=== PATIENT | male | born 1955 | race Caucasian/White ===

== ENCOUNTER 2020-05-12 05:23 | Day surgery (SDC) | payer MEDICARE, OTHER ==
[2020-05-07 09:34] LABS: HEMATOCRIT 38.3 % (37.9-51.0); HEMOGLOBIN 13.4 g/dL (13.5-17.0); MEAN CORPUSCULAR HEMOGLOBIN 30.3 pg (27.0-33.4); MEAN CORPUSCULAR HGB CONC 35.1 g/dL (32.0-36.0); MEAN CORPUSCULAR VOLUME 86 fl (80-97); PLATELET COUNT 211 10^3/uL (150-450); RED BLOOD COUNT 4.43 10^6/uL (4.35-5.55); RED CELL DISTRIBUTION WIDTH 13.4 % (11.5-14.0); WHITE BLOOD COUNT 5.7 10^3/uL (4.0-10.5)
--- NOTE | 2020-05-07 12:43 | EKG REPORT ---
SEVERITY:- NORMAL ECG - SINUS RHYTHM : Confirmed by: Alex Chu MD 07-May-2020 12:42:33
[~2020-05-12 05:23] MED LIST: DEXTROSE 5%-LACTATED RINGERS 1,000 ML IV PRN
[2020-05-12] MEDS ORDERED: FENTANYL CITRATE INJ/PF 100 MCG/2 ML AMPUL ONE ×2 (06:41→07:16)
[2020-05-12] MEDS ORDERED: EPHEDRINE SULFATE INJ 50 MG/1 ML AMPULE ONE (06:41)
[2020-05-12] MEDS ORDERED: MIDAZOLAM 2 MG/2 ML INJ ONE (06:41)
[2020-05-12] MEDS ORDERED: PROPOFOL INJ 200 MG/20 ML VIAL IV ONE (06:42)
[2020-05-12] MEDS ORDERED: ONDANSETRON HCL INJ/PF 4 MG/2 ML SDV ONE (06:42)
[2020-05-12] MEDS ORDERED: LIDOCAINE 1%/EPINEPHRINE INJ 20 ML VIAL ONE ×2 (07:02→08:11)
[2020-05-12 07:08] LABS: POTASSIUM 4.6 mmol/L (3.6-5.0)
[2020-05-12] MEDS ORDERED: SUGAMMADEX SODIUM 200 MG/2 ML SDV IV ONE (07:16)
[2020-05-12] MEDS ORDERED: MEPERIDINE HCL/PF INJ 25 MG/1 ML DISP.SYRIN IV PRN (08:02)
[2020-05-12] MEDS ORDERED: DIPHENHYDRAMINE HCL 50 MG/ML VIAL IV PRN (08:02)
[2020-05-12] MEDS ORDERED: PROMETHAZINE HCL INJ 25 MG/1 ML VIAL IV PRN ×2 (08:02)
[2020-05-12] MEDS ORDERED: FENTANYL CITRATE INJ/PF 100 MCG/2 ML AMPUL IV PRN ×3 (08:02)
[2020-05-12] MEDS ORDERED: OXYCODONE-ACETAMINOPHEN 5-325 MG TABLET PO PRN ×3 (08:02→08:49)
[2020-05-12] MEDS ORDERED: MORPHINE SULFATE 10 MG/ML INJ IV PRN (08:02)
--- NOTE | 2020-05-12 08:37 | Operative Report ---
Operative Report DATE OF SURGERY: 05/12/20 PREOPERATIVE DIAGNOSIS: 1. Multiple inflamed sebaceous cysts of the back. 2. COPD POSTOPERATIVE DIAGNOSIS: Same OPERATION: Complete excision of 3 sebaceous cysts of the back including large upper mid back, large left lower back, and small right lower back with drain placement x2 SURGEON: SILKE VALDOVINOS 1ST ORBITREAD OPERATOR: VIJAY WISE ANESTHESIA: GA TISSUE REMOVED OR ALTERED: Sebaceous cyst contents disposed of COMPLICATIONS: None ESTIMATED BLOOD LOSS: Minimal INTRAOPERATIVE FINDINGS: See below PROCEDURE: The patient was taken from the preop holding area where all 3 sebaceous cyst of the back were marked by Dr. Valdovinos. He was then brought to the operating room where general anesthesia was induced, the patient was placed in the prone position, arms abducted. The back was exposed, prepped and draped in sterile fashion with Betadine Surgical plan surgical timeout were conducted. The target sebaceous cyst were in the mid upper back, left lower back, right lower back. All 3 sites were marked for a planned excisional debridement. Skin was anesthetized with 1% plain lidocaine. The left lower back was approached first. This lesion was excised in an elliptical fashion oriented horizontally. The ellipse of skin was approximately 1-1/2 x 3-1/2 cm. The entire sebaceous cyst, with surrounding fibrotic inflammatory tissue was excised to the back fascia with a #10 blade. There were several centimeters of undermined cavity. A counterincision was made inferior to the evacuated cavity, and a Nando drain fragment positioned into place exiting the counterincision. We irrigated the cavity out, ensure that all buttock elements were excised, and the wound closed with vertically oriented mattress sutures using a 3-0 suture. The drain was secured with a similar suture The identical procedure was performed on the upper back cyst, with the excisional ellipse excised with the dimensions 3.5 x 2.0 cm. All underlying sebum, fibrotic tissue and inflammatory tissue excised in its entirety. Wound check for bleeding and there was minimal spots handled with electrocautery. The wound was closed with multiple vertical oriented 3-0 Ethilon sutures in a mattress fashion, with a Nando drain fragment exiting the inferior aspect of the incision secured with a similar suture. All dissection performed with a #10 blade and pickups. The depth of the dissection was down to the upper back fascia. Finally the right lower quadrant smaller 1 x 2cm sebaceous cyst was excised in elliptical fashion with the excision oriented horizontally. The sebaceous cyst with surrounding inflammatory tissue and fibrotic tissue was excised in its entirety and disposed of. Wound closed with multiple interrupted 3 and 4-0 sutures in a vertical mattress fashion. No drain applied. All wounds covered with 4 x 4's, and tape. Patient tolerated procedure well, rolled back into the supine position, and successfully extubated. He was taken to recovery room in stable condition. The physician life enrichment assistant, Ms. De La Fuente, provided assistance during this case by: Assisting with incisions, retracting tissue, instillation of local anesthesia and closure of skin incisions.
[2020-05-12] MEDS ORDERED: DEXAMETHASONE SOD PHOSPHATE INJ 4 MG/1 ML VIAL ONE (08:38)
--- NOTE | 2020-05-12 08:49 | Discharge Summary ---
Discharge Summary (SDC) - Discharge Final Diagnosis: sebaceous cyst of back x 3 Date of Surgery: 05/12/20 Discharge Date: 05/12/20 Condition: Good Forms: ASU Anesthesia D/C Instruction, Discharge POC-Surgical Service Treatment or Instructions: WOUND CARE: Do not shower until 48 hours after surgery. You may remove tape and gauze 24 hours after surgery and apply a clean dressing to the incision sites and two drain sites. After 48 hours, you may shower. Remove outer dressings and allow warm water and soap to wash over wound. Do not scrub. Pat dry. Apply a clean dressing. Do not bathe or go swimming for two weeks. PAIN MANAGEMENT: You may take Toradol 10mg one pill by mouth every six hours as needed for pain. Do not take additional NSAIDs (Ibuprofen, Advil, Aleve, Goodies Powder) with Toradol. You may take Tylenol with medication. You may resume all home meds. FOLLOW UP You may follow up at [facility] in 7-10 days. Call clinic sooner with questions/concerns. Prescriptions: Ketorolac Tromethamine [Toradol 10 mg Tablet] 10 mg PO Q6HP PRN #20 tablet PRN Reason: Referrals: SILKE LAWRENCE MD [ACTIVE STAFF] - Discharge Diet: As Tolerated Discharge Activity: Balance Activity w/Rest, Walk Frequently Report the Following to Your Physician Immediately: Increase in Pain, Fever over 101 Degrees, Unusual Bleeding, Redness, Swelling, Warmth, Increased Soreness, Drainage-Foul Smelling
[2020-05-12 11:02] VITALS: BP 133/74
== END 2020-05-12 10:10 | disposition home or self-care (01) ==
LOC: OROUT 05:23
PROVIDERS: ATTEND Surgery
DX: L72.3 Sebaceous cyst (principal); I10 Essential (primary) hypertension; J44.9 Chronic obstructive pulmonary disease, unspecified; E11.9 Type 2 diabetes mellitus without complications; E78.00 Pure hypercholesterolemia, unspecified; K21.9 Gastro-esophageal reflux disease without esophagitis; E66.9 Obesity, unspecified; G47.33 Obstructive sleep apnea (adult) (pediatric); Z79.899 Other long term (current) drug therapy; Z03.818 Encounter for observation for suspected exposure to other biological agents ruled out; Z95.1 Presence of aortocoronary bypass graft; Z80.8 Family history of malignant neoplasm of other organs or systems; Z98.84 Bariatric surgery status
CPT/HCPCS: 11043; 93005; 36415 ×2; 82947; 84132; 85027; 93010; U0003; J2250; J1100; J3490 ×3; J3010; J2405; J2704; C9803; 87635

== ENCOUNTER → 2020-05-18 | Outpatient (CLI) | payer MEDICARE ==
--- NOTE | 2020-05-18 14:04 | RADIOLOGY REPORT (SQ) ---
EXAM DESCRIPTION: MRI LUMBAR SPINE WITHOUT IMAGES COMPLETED DATE/TIME: 05/18/2020 8:34 am REASON FOR STUDY: M54.9 DORSALGIA, UNSPECIFIED M54.9 DORSALGIA, UNSPECIFIED COMPARISON: None. TECHNIQUE: Sagittal and Axial imaging includes T1, T2, STIR and gradient echo sequences. Coronal T2/ HASTE imaging. LIMITATIONS: None. FINDINGS: VISUALIZED UPPER ABDOMEN: Limited evaluation. No acute or suspicious findings suggested. SEGMENTATION: No transitional anatomy. The lowest well-developed disc space is labeled L5-S1. ALIGNMENT: Anatomic. VERTEBRAE: Intact. BONE MARROW: Normal. No marrow replacement or reactive changes. DISC SIGNAL: Normal. No significant abnormal signal or loss of height. POSTERIOR ELEMENTS: Generally intact. No pars defect evident. HARDWARE: None in the spine. CORD AND CONUS: Normal in size and signal intensity. Conus at the T12-L1 level. SOFT TISSUES: No aortic aneurysm seen. No bulky retroperitoneal adenopathy or mass. No paraspinal mas s or fluid. L1-L2: No significant spinal stenosis or exit foraminal stenosis. L2-L3: No significant spinal stenosis or exit foraminal stenosis. L3-L4: No significant spinal stenosis or exit foraminal stenosis. L4-L5: Mild concentric disc bulging with no central canal or foraminal stenosis. L5-S1: Shallow broad-based disc/osteophyte complex with midline to a slightly right paracentral disc protrusion. This may displace the traversing nerve root on the right laterally. LOWER THORACIC: Incompletely imaged. No stenosis seen. SACRUM: Visualized upper sacrum intact. OTHER: No other significant findings. IMPRESSION: Mild concentric disc bulging at L4-5 with no significant stenoses. Broad-based disc/ os teophyte complex at L5-S1. There is a disc protrusion in the midline and slightly to the right that appears to displace the traversing nerve root laterally to a mild degree. TECHNICAL DOCUMENTATION: JOB ID: [id number] 2010 [employer]- All Rights Reserved Reading location - IP/workstation name: [email or web address]
== END ==
LOC: RAD 07:56
PROVIDERS: ATTEND Family Medicine Geriatric Medicine
DX: M51.26 Other intervertebral disc displacement, lumbar region (principal); M54.9 Dorsalgia, unspecified; M54.16 Radiculopathy, lumbar region
CPT/HCPCS: 72148

== ENCOUNTER → 2020-05-31 | Outpatient (CLI) | payer MEDICARE ==
--- NOTE | 2020-05-31 09:39 | RADIOLOGY REPORT (SQ) ---
EXAM DESCRIPTION: L SPINE W/FLEX/EXT IMAGES COMPLETED DATE/TIME: 05/31/2020 9:29 am REASON FOR STUDY: MULTIFACTORIAL LOW BACK PAIN M54.5 LOW BACK PAIN M54.2 CERVICALGIA COMPARISON: None. NUMBER OF VIEWS: Seven views. TECHNIQUE: AP, lateral, obliques, flexion, extension, and sacral radiographic images acquired. LIMITATIONS: None. FINDINGS: MINERALIZATION: Normal. SEGMENTATION: Normal. No transitional anatomy. ALIGNMENT: Normal. FLEXION/EXTENSION: No instability. VERTEBRAE: Maintained height. No fracture or worrisome bone lesion. DISCS: Disc space narrowing at L4-L5 and L5-S1. POSTERIOR ELEMENTS: Pedicles and facets are intact. No pars defect or posterior arch defects. HARDWARE: None in the spine. PARASPINAL SOFT TISSUES: Normal. PELVIS: Intact as visualized. No fractures or worrisome bone lesions. SI joints intact. OTHER: No other significant finding. IMPRESSION: Disc space narrowing at L4-L5 and L5-S1. No instability on flexion or extension. TECHNICAL DOCUMENTATION: JOB ID: [id number] 2010 [employer]- All Rights Reserved Reading location - IP/workstation name: [email or web address]
--- NOTE | 2020-05-31 09:41 | RADIOLOGY REPORT (SQ) ---
EXAM DESCRIPTION: CERV SP 4 OR 5 VIEWS IMAGES COMPLETED DATE/TIME: 05/31/2020 9:29 am REASON FOR STUDY: CERVICALGIA M54.5 LOW BACK PAIN M54.2 CERVICALGIA COMPARISON: None. NUMBER OF VIEWS: Five views. TECHNIQUE: AP, lateral, obliques and odontoid radiographic images acquired of the cervical spine. LIMITATIONS: None. FINDINGS: MINERALIZATION: Normal. ALIGNMENT: Anatomic. VERTEBRAE: Vertebral bodies of normal height. DISCS: No significant osteophytes or sclerosis. Disc height maintained. FORAMINA: No osteophytes or foraminal narrowing. LATERAL AND POSTERIOR ELEMENTS: Facets, lateral masses and spinous processes without significant find ings. HARDWARE: None in the spine. SOFT TISSUES: There is soft tissue calcification posterior to the spinous processes at C4 and C5. Th is extends to just above the C6 spinous process. OTHER: No other significant finding. IMPRESSION: There is soft tissue calcification extending cranial caudally just posterior to the spin ous processes at C5 and C6. No other significant findings in the cervical spine. TECHNICAL DOCUMENTATION: JOB ID: [id number] 2010 [employer]- All Rights Reserved Reading location - IP/workstation name: [email or web address]
== END ==
LOC: RAD 08:34
PROVIDERS: ATTEND Pain Medicine Pain Medicine
DX: M54.5 Low back pain (principal); M54.2 Cervicalgia
CPT/HCPCS: 72050; 72114

== ENCOUNTER → 2020-06-10 | Outpatient (CLI) | payer MEDICARE ==
[2020-06-10 09:07] LABS: ABSOLUTE EOSINOPHILS # (AUTO) 0.1 10^3/uL (0.0-0.6); ABSOLUTE LYMPHOCYTES (AUTO) 1.7 10^3/uL (0.5-4.7); ABSOLUTE MONOCYTES (AUTO) 0.5 10^3/uL (0.1-1.4); ABSOLUTE NEUT (AUTO) 2.1 10^3/uL (1.7-8.2); BASOPHILS % (AUTO) 0.9 % (0-2); EOSINOPHILS % (AUTO) 2.6 % (0-6); HEMATOCRIT 40.6 % (37.9-51.0); HEMOGLOBIN 14.1 g/dL (13.5-17.0); LYMPHOCYTES % (AUTO) 38.9 % (13-45); MEAN CORPUSCULAR HEMOGLOBIN 30.1 pg (27.0-33.4); MEAN CORPUSCULAR HGB CONC 34.7 g/dL (32.0-36.0); MEAN CORPUSCULAR VOLUME 87 fl (80-97); MONOCYTES % (AUTO) 10.3 % (3-13); PLATELET COUNT 238 10^3/uL (150-450); RED BLOOD COUNT 4.69 10^6/uL (4.35-5.55); RED CELL DISTRIBUTION WIDTH 13.4 % (11.5-14.0); SEGMENTED NEUTROPHILS % (AUTO) 47.3 % (42-78); TOTAL CELLS COUNTED % (AUTO) 100 %; WHITE BLOOD COUNT 4.4 10^3/uL (4.0-10.5)
[2020-06-10 09:27] LABS: ALBUMIN 4.8 g/dL (3.5-5.0); ALKALINE PHOSPHATASE 57 U/L (38-126); ANION GAP 6 (5-19); ASPARTATE AMINO TRANSFERASE 23 U/L (17-59); BILIRUBIN,DIRECT 0.1 mg/dL (0.0-0.4); BILIRUBIN,TOTAL 0.5 mg/dL (0.2-1.3); BLOOD UREA NITROGEN 26 mg/dL (7-20); CALCIUM 10.1 mg/dL (8.4-10.2); CARBON DIOXIDE 32 mmol/L (22-30); CHLORIDE 101 mmol/L (98-107); CHOLESTEROL 157.07 mg/dL (0-200); GLUCOSE 105 mg/dL (75-110); POTASSIUM 4.9 mmol/L (3.6-5.0); TOTAL PROTEIN 7.7 g/dL (6.3-8.2); TRIGLYCERIDES 127 mg/dL (<150)
[2020-06-10 09:38] LABS: DIRECT LDL 85 mg/dL (<100)
[2020-06-11 13:37] LABS: CREATININE URINE 101.8 mg/dL (Not Estab.); MICROALBUMIN URINE 3.3 ug/mL (Not Estab.)
== END ==
LOC: OD 08:15
PROVIDERS: ATTEND Family Medicine Geriatric Medicine
DX: E11.9 Type 2 diabetes mellitus without complications (principal); I10 Essential (primary) hypertension; I25.10 Atherosclerotic heart disease of native coronary artery without angina pectoris; E78.5 Hyperlipidemia, unspecified; Z79.899 Other long term (current) drug therapy
CPT/HCPCS: 36415; 80053; 80061; 82043; 82570; 83036; 84443; 85025